=== PATIENT | female | born 1995 | race Two or more races ===

== ENCOUNTER 2024-01-29 21:36 | Emergency (ER) | payer OTHER ==
[~2024-01-29] VITALS: Ht 157.5 cm; Wt 68.0 kg
--- NOTE | 2024-01-29 21:54 | ED.PDOC ---
GI ASSESSMENT HPI Comments 28-year-old female who came to ER via EMS due to abdominal pain. About an hour ago, patient developed sudden onset sharp, constant, epigastric abdominal pain nonradiating. Denies a nausea or vomiting or changes in bowel habits. Patient was given fentanyl the paramedics for the pain while EN route to the ER Chief Complaint: Abdominal Pain Time Seen by MD: 21:54 Reviewed Notes: Nurses Notes Allergies: Coded Allergies: NO KNOWN ALLERGIES (Unverified , 01/29/24) Home Meds Active Scripts Ondansetron HCl (Ondansetron Hydrochloride) 8 Mg Tab, 8 MG PO Q6HP PRN for 10 Days, #40 TAB Prov:JUAN ALBERTO AL MD 01/29/24 Famotidine (PEPCID TABLET) 20 Mg Tb, 1 TAB PO BID PRN for 30 Days, #60 TAB 3 Refills Prov:JUAN ALBERTO AL MD 01/29/24 Information Source: Patient Mode of Arrival: Ambulatory Timing: Minutes Duration: Since onset Prehospital treatment: Treatment Quality: Sharp Vomitus: None Stool: Normal Severity: Moderate Recent: None Recent Hx of: Abdominal Surgery Pain Location: Epigastric Modifying Factors: Nothing Associated sign and symptoms: Abdominal Pain Past Medical History PAST MEDICAL HISTORY: Denies Surgical History: Surgical History (Other): Urinary bladder rupture [employer] History: Denies all [employer] Hx Family History Family History: Reviewed,noncontributory to illness Social History Smoker: Non-Smoker Alcohol: Denies ETOH Use Drugs: Denies Drug Use Lives In: Home Constitutional: denies: chills, diaphoresis, fatigue, fever, malaise, sweats, weakness, others EENTM: denies: blurred vision, double vision, ear bleeding, ear discharge, ear drainage, ear pain, ear ringing, eye pain, eye redness, hearing loss, mouth pain, mouth swelling, nasal discharge, nose bleeding, nose congestion, nose pain, photophobia, tearing, throat pain, throat swelling, voice changes, others Respiratory: denies: cough, hemoptysis, orthopnea, SOB at rest, shortness of breath, SOB with excertion, stridor, wheezing, others Cardiovascular: denies: chest pain, dizzy spells, diaphoresis, Dyspnea on exertion, edema, irregular heart beat, left arm pain, lightheadedness, palpitations, PND, syncope, others Gastrointestinal: reports: abdominal pain; denies: abdomen distended, blood streaked bowels, constipated, diarrhea, dysphagia, difficulty swallowing, hematemesis, melena, nausea, poor appetite, poor fluid intake, rectal bleeding, rectal pain, vomiting, others Genitourinary: denies: abnormal vagina bleeding, burning, dyspareunia, dysuria, flank pain, frequency, hematuria, incontinence, pain, , vagina discharge, urgency, others Neurological: denies: dizziness, fainting, headache, left sided numbness, left sided weakness, numbness, paresthesia, pre-existing deficit, right sided numbness, right sided weakness, seizure, speech problems, tingling, tremors, weakness, others Musculoskeletal: denies: back pain, gout, joint pain, joint swelling, muscle pain, muscle stiffness, neck pain, others Integumetry: denies: bruises, change in color, change in hair/nails, dryness, laceration, lesions, lumps, rash, wounds, others Allergic/Immunocompromised: denies: Difficulty Healing, Frequent Infections, H malik, Itching, others Hematologic/Lymphatic: denies: anemia, blood clots, easy bleeding, easy bruising, swollen glands, others Endocrine: denies: excessive hunger, excessive sweating, excessive thirst, excessive urination, flushing, intolerance to cold, intolerance to heat, unexplained weight gain, unexplained weight loss, others Psychiatric: denies: anxiety, bipolar disorder, depression, hopeless, panic disorder, schizophrenia, sleepless, suicidal, others Physical Exam General Appearance: Moderate Distress, Normal HEENT: Normal ENT Inspection, Pharynx Normal, TMs Normal Neck: Full Range of Motion, Non-Tender, Normal, Normal Inspection Respiratory: Chest Non-Tender, Lungs Clear, No Accessory Muscle Use, No Respiratory Distress, Normal Breath Sounds Cardiovascular: No Edema, No JVD, No Murmur, No Gallop, Normal Peripheral Pul ses, Regular Rate/Rhythm Breast Exam: Deferred Gastrointestinal: No Pulsatile Mass, Normal Bowel Sounds, Soft, Tenderness, Other (mild epigastric tenderness) Genitalia: Deferred Pelvic: Deferred Rectal: Deferred Extremities: No calf tenderness, Normal capillary refill, Normal inspection, Normal range of motion, Non-tender, No pedal edema Musculoskeletal : Apperance: Normal Neurologic: Alert, 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 Was a procedure done?: No GI differential Dx Differential Diagnosis: Bowel Obstruction, Diverticular disease, Gastritis/PUD, Gastroenteritis, Hernia, Pancreatitis, Porphyria, UTI, Urolithiasis, Food Poiso tamy X-Ray, Labs, Meds, VS Vital Signs Date Time Temp Pulse Resp B/P (MAP) Pulse Ox O2 Delivery O2 Flow Rate FiO2 01/29/24 22:30 88 28 108/63 01/29/24 21:36 98.1 103 24 143/83 (103) 96 Lab Test 01/29/24 21:59 Range/Units White Blood Count 13.1 H 4.4-10.8 10^3/uL Red Blood Count 5.00 4.0-5.20 10^6/uL Hemoglobin 14.4 12.2-16.2 g/dL Hematocrit 42.8 36.0-46.0 % Mean Corpuscular Volume 85.5 80.0-100.0 fL Mean Corpuscular Hemoglobin 28.7 28.0-32.0 pg Mean Corpuscular Hemoglobin Concent 33.6 32.0-36.0 g/dL Red Cell Distribution Width 13.6 11.8-14.3 % Platelet Count 269 140-450 10^3/uL Mean Platelet Volume 7.5 6.9-10.8 fL Neutrophils (%) (Auto) 59.1 37.0-80.0 % Lymphocytes (%) (Auto) 32.2 10.0-50.0 % Monocytes (%) (Auto) 7.2 0.0-12.0 % Eosinophils (%) (Auto) 1.1 0.0-7.0 % Basophils (%) (Auto) 0.4 0.0-2.0 % Neutrophils # (Auto) 7.7 1.6-8.6 10 ^3/uL Lymphocytes # (Auto) 4.2 0.4-5.4 10 ^3/uL Monocytes # (Auto) 0.9 0-1.3 10 ^3/uL Eosinophils # (Auto) 0.2 0-0.8 10 ^3/uL Basophils # (Auto) 0.1 0-0.2 10 ^3/uL Nucleated Red Blood Cells 0.0 % Sodium Level 141 136-145 mmol/L Potassium Level 3.8 3.5-5.1 mmol/L Chloride Level 107 98-107 mmol/L Carbon Dioxide Level 23 20-31 mmol/L Anion Gap 11 5-15 Blood Urea Nitrogen 17 9-23 mg/dL Creatinine 0.80 0.550-1.02 mg/dL Glomerular Filtration Rate Calc 102 >90 mL/min BUN/Creatinine Ratio 21.3 H 10.0-20.0 Serum Glucose 107 H 74-106 mg/dL Calcium Level 9.8 8.7-10.4 mg/dL Total Bilirubin 0.5 0.2-1.0 mg/dL Aspartate Amino Transferase (AST) 36 13-40 U/L Alanine Aminotransferase (ALT) 28 7-40 U/L Alkaline Phosphatase 121 H 46-116 U/L Total Protein 7.6 5.7-8.2 g/dL Albumin 4.7 3.2-4.8 g/dL Lipase 43 12-53 U/L Beta HCG, Quantitative 1.5 1.5-4.2 mIU/mL Current Medications Medications (Trade) Dose Ordered Sig/Jaycee Route Start Time Stop Time Status Last Admin Ondansetron HCl (Zofran) 4 mg ONCE ONCE IV 01/29/24 21:45 01/29/24 21:47 DC 01/29/24 22:30 Hydromorphone HCl (Dilaudid Injection) 1 mg ONCE ONCE IV 01/29/24 21:45 01/29/24 21:47 DC 01/29/24 22:30 Sodium Chloride 1,000 ml @ 1,000 mls/hr Q1H ONCE IVB 01/29/24 21:45 01/29/24 22:44 DC 01/29/24 22:30 Famotidine (Pepcid Injection) 20 mg ONCE ONCE IV 01/29/24 21:45 01/29/24 21:48 DC 01/29/24 22:30 PROCEDURE(s): GBUS - GALLBLADDER FINDINGS: The liver is homogenous in echogenicity. The liver measures 16.43 cm. No intrahepatic biliary ductal dilatation is noted. The gallbladder wall not visible. Gallbladder is contracted.. No gallstones or sludge is seen. The common duct measures 0.47 cm and is unremarkable. No pericholecystic fluid is noted. The right kidney measures 8.34 cm. Mild pyelocaliectasis. hydronephrosis. The pancreas is normal by ultrasound The visualized portions of the IVC and aorta are grossly unremarkable. IMPRESSION: 1. Gallbladder contracted gallbladder wall not visible. 2. No dilatation of the common bile 3. Pancreas appears normal Exam: CT CT AB PEL WITH IV CON ONLY FINDINGS: Lung Bases: No acute or significant lung base finding. Bilateral breast implants are visualized. Normal heart size. No pleural or pericardial effusion. Liver: The liver is normal in size. No focal lesions. Normal hepatic vascular enhancement. Gallbladder and Biliary Tree: Gallbladder appears contracted there is a punctate calcified gallstone visualized. Spleen: Unremarkable Pancreas: The pancreas is normal in appearance without focal lesions or abnormal enhancement. Adrenal Glands: Unremarkable Kidneys: Kidneys demonstrate normal symmetric enhancement without focal lesions, calculi or hydronephrosis. Bladder: Unremarkable Bowel: The stomach is grossly normal in appearance. Small bowel and colon are normal in caliber and distribution. The appendix is not visualized; however, no secondary findings of acute appendicitis identified. Ascites: Absent Lymphadenopathy: No mesenteric, retroperitoneal or periportal lymphadenopathy. Abdominal Wall and Mesentery: Unremarkable. Vasculature: The visualized abdominal aorta is normal in size and caliber. Abdominal and pelvic vessels demonstrate normal enhancement. Pelvic Organs: IUD in the uterus. 3.9 cm right adnexal mass. 3.1 cm left adnexal mass. Most likely ovaries if of clinical concern recommend pelvic ultrasound. Musculoskeletal: No aggressive focal bony lesions, acute fractures or dislocation. Soft tissues: Unremarkable. IMPRESSION: 1. Fluid and food distended stomach. 2. No findings of bowel obstruction. 3. Contracted gallbladder with small calcified gallstone. 4. No nephrolithiasis or hydronephrosis. 5. No free air or free fluid. 6. IUD in the uterus. 3.9 cm right adnexal mass and 3.1 cm left adnexal mass most likely ovaries. If of clinical concern recommend pelvic ultrasound. Time of 1ST Reevaluation: 21:50 Reevaluation 1ST: Unchanged Time of 2ND Reevaluation: 23:17 Reevaluation 2ND: Improved (Patient feels much better, essentially symptoms have resolved, abd nontender, agreeable to outpatient management) Patient Education/Counseling: Diagnosis, Treatment Family Education/Counseling: No Family Present Departure 1 Departure Time of Disposition: 23:18 Impression: Primary Impression: Epigastric pain Disposition: HOME / SELF CARE / HOMELESS Condition: Stable e-Prescriptions Ondansetron HCl (Ondansetron Hydrochloride) 8 Mg Tab 8 MG PO Q6HP PRN for 10 Days, #40 TAB Prov: JUAN ALBERTO AL MD 01/29/24 Famotidine (PEPCID TABLET) 20 Mg Tb 1 TAB PO BID PRN for 30 Days, #60 TAB 3 Refills Prov: JUAN ALBERTO AL MD 01/29/24 Discharged With: Self Critical Care Note Critical Care Time?: No Stability Stability form required: No Heart Score Heart Score: Heart Score Response (Comments) Value History N/A 0 EKG N/A 0 Age N/A 0 Risk Factors N/A 0 Troponin N/A 0 Total 0 I personally scribed for JUAN ALBERTO AL MD (CATHY) on 01/29/24 at 21:54. Electronically submitted by Teodoro Joyce ([email or web address] ([email or web address])). I personally scribed for JUAN ALBERTO AL MD (CATHY) on 01/29/24 at 22:49. Electronically submitted by Teodoro Joyce ([email or web address] ([email or web address])). I personally scribed for JUAN LABERTO AL MD (CATHY) on 01/29/24 at 23:14. Electronically submitted by Teodoro Joyce ([email or web address] ([email or web address])). JUAN ALBERTO AL MD Jan 29, 2024 21:54
[2024-01-29 22:14] LABS: Basophils # (auto) 0.1 10 ^3/uL (0-0.2); Basophils % (auto) 0.4 % (0.0-2.0); Eosinophils # (auto) 0.2 10 ^3/uL (0-0.8); Eosinophils % (auto) 1.1 % (0.0-7.0); Hematocrit 42.8 % (36.0-46.0); Hemoglobin 14.4 g/dL (12.2-16.2); Lymphocytes # (auto) 4.2 10 ^3/uL (0.4-5.4); Lymphocytes % (auto) 32.2 % (10.0-50.0); Mean Corpuscular Hemoglobin 28.7 pg (28.0-32.0); Mean Corpuscular Hgb Conc. 33.6 g/dL (32.0-36.0); Mean Corpuscular Volume 85.5 fL (80.0-100.0); Monocytes # (auto) 0.9 10 ^3/uL (0-1.3); Monocytes % (auto) 7.2 % (0.0-12.0); Neutrophils # (auto) 7.7 10 ^3/uL (1.6-8.6); Neutrophils % (auto) 59.1 % (37.0-80.0); Platelet Count (auto) 269 10^3/uL (140-450); Red Cell Distribution Width 13.6 % (11.8-14.3); White Blood Cell 13.1 10^3/uL (4.4-10.8)
[2024-01-29 22:30] VITALS: PULSE 88; RESP 26; O2SAT 96
[2024-01-29] MEDS: ONDANSETRON HCL 4 MG/2 ML VIAL IV ONE (22:30)
[2024-01-29] MEDS: HYDROmorphone HCL 2 MG/ML VL/or syr IV ONE (22:30)
[2024-01-29] MEDS: FAMOTIDINE (10MG/ML) 2ML VL IV ONE (22:30)
[2024-01-29] MEDS: SODIUM CHLORIDE 0.9% 1,000 ML IVB ONE (22:30)
[2024-01-29 22:31] LABS: Alanine Aminotransferase 28 U/L (7-40); Albumin 4.7 g/dL (3.2-4.8); Anion Gap 11 (5-15); Aspartate Aminotransferase 36 U/L (13-40); BUN/Creatinine Ratio 21.3 (10.0-20.0); Bilirubin, Total 0.5 mg/dL (0.2-1.0); Blood Urea Nitrogen 17 mg/dL (9-23); Calcium 9.8 mg/dL (8.7-10.4); Carbon Dioxide 23 mmol/L (20-31); Chloride 107 mmol/L (98-107); Lipase 43 U/L (12-53); Potassium 3.8 mmol/L (3.5-5.1); Sodium 141 mmol/L (136-145); Total Protein 7.6 g/dL (5.7-8.2)
--- NOTE | 2024-01-29 22:32 | DVH ---
INDICATION: severe epigastric pain TECHNIQUE: Multiple real-time sonographic images of the abdomen were obtained. COMPARISON: None FINDINGS: The liver is homogenous in echogenicity. The liver measures 16.43 cm. No intrahepatic bili shannan ductal dilatation is noted. The gallbladder wall not visible. Gallbladder is contracted.. No gallstones or sludge is seen. The common duct measures 0.47 cm and is unremarkable. No pericholecystic fluid is noted. The right kidney measures 8.34 cm. Mild pyelocaliectasis. hydronephrosis. The pancreas is normal by ultrasound The visualized portions of the IVC and aorta are grossly unremarkable. IMPRESSION: 1. Gallbladder contracted gallbladder wall not visible. 2. No dilatation of the common bile 3. Pancreas appears normal HS:Y
[2024-01-29 22:39] LABS: Alkaline Phosphatase 121 U/L (46-116); Glucose 107 mg/dL (74-106)
[2024-01-29] MEDS: IOHEXOL 300 MG/ML 100ML BOTTLE IJ ONE (22:58)
--- NOTE | 2024-01-29 23:06 | DVH ---
Exam: CT CT AB PEL WITH IV CON ONLY History: upper abd pain Comparison Study: None available at time of dictation. Contrast: Type of contrast: Omnipaque 300 Contrast injected: 100 mL Contrast wasted: 0 TECHNIQUE: A digital bookkeeping manager image was obtained. During the uneventful, intravenous administration of c ontrast material, multislice data acquisition was obtained through the abdomen and pelvis. The data s et was subsequently reconstructed into axial images. Images were reviewed on a work station using a c ombination of axial and multiplanar using a variety of window levels and settings. Radiation Dose Information: CT Dose: CTDI volume is 9.89 mGy. Dose-length product is 544.02 mGy*cm FINDINGS: Lung Bases: No acute or significant lung base finding. Bilateral breast implants are visualized. Norm al heart size. No pleural or pericardial effusion. Liver: The liver is normal in size. No focal lesions. Normal hepatic vascular enhancement. Gallbladder and Biliary Tree: Gallbladder appears contracted there is a punctate calcified gallstone visualized. Spleen: Unremarkable Pancreas: The pancreas is normal in appearance without focal lesions or abnormal enhancement. Adrenal Glands: Unremarkable Kidneys: Kidneys demonstrate normal symmetric enhancement without focal lesions, calculi or hydroneph rosis. Bladder: Unremarkable Bowel: The stomach is grossly normal in appearance. Small bowel and colon are normal in caliber and d istribution. The appendix is not visualized; however, no secondary findings of acute appendicitis id entified. Ascites: Absent Lymphadenopathy: No mesenteric, retroperitoneal or periportal lymphadenopathy. Abdominal Wall and Mesentery: Unremarkable. Vasculature: The visualized abdominal aorta is normal in size and caliber. Abdominal and pelvic vess els demonstrate normal enhancement. Pelvic Organs: IUD in the uterus. 3.9 cm right adnexal mass. 3.1 cm left adnexal mass. Most likely ovaries if of clinical concern recommend pelvic ultrasound. Musculoskeletal: No aggressive focal bony lesions, acute fractures or dislocation. Soft tissues: Unremarkable. IMPRESSION: 1. Fluid and food distended stomach. 2. No findings of bowel obstruction. 3. Contracted gallbladder with small calcified gallstone. 4. No nephrolithiasis or hydronephrosis. 5. No free air or free fluid. 6. IUD in the uterus. 3.9 cm right adnexal mass and 3.1 cm left adnexal mass most likely ovaries. If of clinical concern recommend pelvic ultrasound. HS:Y All CT scans at this medical facility are performed using dose modulation techniques as appropriate t o a performed exam including the following: Automated exposure control was utilized; adjustment of th e MA and/or KV according to patient size; and use of iterative reconstruction technique.
[2024-01-29] MEDS ORDERED: ONDA-180 PO (23:15)
[2024-01-29] MEDS ORDERED: FAMO20TA10 PO (23:15)
[2024-01-29] MEDS: ONDANSETRON ODT 4 MG TAB PO ONE (23:45)
[2024-01-30] VITALS: O2SAT 95
[2024-01-30 00:06] VITALS: BP 101/51; PULSE 72; RESP 18
[2024-01-30] MEDS ORDERED: HYDR-4902 PO (00:06)
== END 2024-01-30 00:39 | disposition home or self-care (01) ==
LOC: ER 21:36 → EDBD 21:36 → ER 01-30 00:39
DX: R10.13 Epigastric pain (principal); R10.2 Pelvic and perineal pain; Z98.890 Other specified postprocedural states
CPT/HCPCS: 36415; 74177; 76705; 80053; 83690; 84702; 85025; 96361; 96374; 96375; 99285; J1171; J2405; J3490; J7030; Q0162; Q9967